=== PATIENT | male | born 1945 | race Caucasian/White ===

== ENCOUNTER 2025-01-29 08:38 | Observation (INO) ==
--- NOTE | 2025-01-29 09:08 | Emergency Department Note ---
Impression & Plan Stroke-like symptoms, Fall, Closed rib fracture ED Provider Note NAME: ASHLEIGH GARDNER AGE: 79 SEX: M : 1945 ARRIVES VIA: Walk-In INFORMANT: Patient, ED PROVIDER(S): Jose De Jesus Dong DO CHIEF COMPLAINT: Weakness HPI: The patient is a 79-year-old male who presented to the emergency department for an evaluation of weakness. The patient started noticing weakness on his right side yesterday. He states he is also having some trouble with walking. He feels off balance and knows he is falling to the right. He denies having any headache. He denies having any nausea or vomiting. The patient does not have a history of hypertension. He has no history of stroke. He has a history of diabetes. The patient fell last evening onto his right side injuring his right ribs. He called his family doctor this morning to be evaluated but was sent to the emergency department for further evaluation. ROS: See above HPI for pertinent positives & negatives. A total of 10 systems reviewed and were otherwise negative. PAST MEDICAL HISTORY: See Below PAST SURGICAL HISTORY: See Below FAMILY HISTORY: See Below SOCIAL HISTORY: See Below HOME MEDICATIONS: See Below ALLERGIES: See Below VITALS: See Below PHYSICAL EXAMINATION: GENERAL: Patient is awake alert in no acute distress patient is resting comfortably and showing no signs of anxiety EYES: The conjunctivae are clear. The pupils are round and reactive. EARS, NOSE, MOUTH AND THROAT: The nose is without any evidence of any deformity. Mucous membranes are moist. Tongue is midline. NECK: The neck is nontender and supple. RESPIRATORY: Normal respiratory effort is noted there is no evidence of wheezing rhonchi or rales CARDIOVASCULAR: Regular rate and rhythm noted there no murmurs rubs or gallops normal S1 normal S2. GASTROINTESTINAL: There is right upper quadrant tenderness over the lower rib cage. There is no specific guarding or rigidity noted. MUSCULOSKELETAL/EXTREMITIES: There is no evidence of gross deformity full range of motion is noted in the hips and shoulders. There is tenderness over the right anterior rib cage. There is no crepitus. SKIN: There is no obvious evidence of any rash. There are no petechiae, pallor or cyanosis noted. NEUROLOGIC: Patient is awake alert and oriented x3. Rapid alternating movements appear to be somewhat slower in the right hand compared to the left. The patient is able to hold each leg off the bed for greater than 5 seconds. [employer] strength was somewhat diminished in the right hand. There is no drift. There is no facial droop. Speech is clear. MEDICAL DECISION MAKING: The patient is a 79-year-old male who presented to the emergency department for an evaluation of strokelike symptoms. The patient had symptoms which began yesterday. He was having right-sided weakness. This led to him falling last evening. He presented to the emergency department today more for the fall and not so much of strokelike symptoms. He felt like this was improving. On physical exam the patient did have some dysmetria noted with his right upper extremity. Lower extremities appear to be symmetric. He had no severe headache. I discussed the patient's laboratory and radiographic studies with him. CT showed no acute process. 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 Given the patient's findings I do feel that he is likely consistent with an ischemic stroke. He may require further inpatient workup. For this reason I discussed his condition with the on-call [facility]. They have agreed to evaluate the patient in the emergency department for further management and disposition. The patient did have a unilateral rib fracture. Triage Nursing notes reviewed. Prior medical records reviewed Vital Signs: reviewed and remarkable for elevated blood pressure. Differential diagnosis: Infection, dehydration, metabolic abnormality, hypo/hyperglycemia, electrolyte disturbance, anemia, hypoxia, cardiac sources, intracerebral event, toxicologic, neurologic, as well as other pathologies. ER treatment provided: See below Diagnostics interpreted by me: ECG: EKG was obtained in the emergency department. My interpretation is sinus bradycardia 54 bpm. There is no ectopy. There is no acute ST segment abnormalities noted. QTc was 400 ms. Cardiac Monitoring: An order was placed for continuous cardiac monitoring. The monitor shows a rate of 55 bpm with sinus bradycardia. Laboratory studies: As stated above and show below. Imaging studies: See below. Radiographic imaging was reviewed by myself Consultation(s): I discussed this case with Maria Antonia who is on-call for the [facility] group. Past Med/Surg History Problem List (Updated 01/29/25 @ 10:37 by Jose De Jesus Dong DO) Closed rib fracture (Acute) Fall (Acute) Stroke-like symptoms (Acute) Medical History Diabetes Glaucoma Surgical History No pertinent past surgical history Social History Smoking Status: Former smoker Tobacco Type: Cigarettes Preferred Language: Ukrainian Feels Safe at Home: Yes Allergies Allergies Allergy/AdvReac Type Severity Reaction Status Date / Time No Known Allergies Allergy Unverified 06/03/11 12:58 Home Meds Home Medications Medication Instructions Recorded Confirmed glipizide 2.5 mg tablet, extended 2.5 mg PO DAILY 01/29/25 01/29/25 release 24 hr latanoprost 0.005 % eye drops 1 drp ophthalmic (eye) HS 01/29/25 01/29/25 metformin 1,000 mg tablet 1,000 mg PO BID 01/29/25 01/29/25 Results & Data (ED) Vital Signs Vital Signs - 24 hr 01/29/25 08:39 01/29/25 08:39 01/29/25 09:07 Temperature 36.6 C Temperature Source Temporal Artery Scan Pulse Rate 58 L 56 L Pulse Rate [Apical] Pulse Strength [Apical] Respiratory Rate 18 Respiratory Effort / Characteristics Respiratory Depth Respiratory Pattern Blood Pressure 184/88 H Blood Pressure [Right Arm] Blood Pressure Mean 120 Blood Pressure Mean [Right Arm] Pulse Oximetry 100 Oxygen Delivery Method Room Air Room Air Sepsis Recent Fever Within 48 Hours No Sepsis New/Unexplained Change in Mental Status N/A Sepsis Action Taken by Nursing No Action Required 01/29/25 09:13 01/29/25 09:21 01/29/25 10:48 Temperature Temperature Source Pulse Rate Pulse Rate [Apical] 55 L Pulse Strength [Apical] Respiratory Rate 18 18 Respiratory Effort / Characteristics Non-Labored Spontaneous Non-Labored Spontaneous Respiratory Depth Normal Normal Respiratory Pattern Regular Regular Blood Pressure Blood Pressure [Right Arm] 192/95 H 164/82 H 180/92 H Blood Pressure Mean Blood Pressure Mean [Right Arm] 127 109 121 Pulse Oximetry 99 99 Oxygen Delivery Method Room Air Room Air Sepsis Recent Fever Within 48 Hours Sepsis New/Unexplained Change in Mental Status Sepsis Action Taken by Nursing 01/29/25 12:14 Temperature Temperature Source Pulse Rate Pulse Rate [Apical] 55 L Pulse Strength [Apical] Normal Respiratory Rate 17 Respiratory Effort / Characteristics Non-Labored Spontaneous Respiratory Depth Normal Respiratory Pattern Regular Blood Pressure Blood Pressure [Right Arm] 189/95 H Blood Pressure Mean Blood Pressure Mean [Right Arm] 126 Pulse Oximetry 99 Oxygen Delivery Method Room Air Sepsis Recent Fever Within 48 Hours Sepsis New/Unexplained Change in Mental Status Sepsis Action Taken by Shelter Medications Current Medication List: was personally reviewed by me Laboratory Data Attestation: I reviewed the patient's lab results. 01/29/25 09:05 01/29/25 09:05 Lab Results 01/29/25 01/29/25 01/29/25 Range/Units 09:05 09:13 Unknown WBC 7.99 (4.8-10.8) K/ul RBC 4.47 L (4.70-6.10) M/uL Hgb 14.2 (14.0-18.0) g/dl POC Hgb 14.3 (14.0-18.0) g/dl Hct 40.6 L (42.0-52.0) % POC Hct 42 (42-52) % MCV 90.8 (80.0-100.0) fL MCH 31.8 (25.0-34.0) pg MCHC 35.0 (32.0-36.0) g/dL RDW Std Deviation 42.1 (36.4-46.3) fL RDW Coeff of Amelia 12.7 (11.5-14.5) % Plt Count 208 (130-400) K/uL MPV 9.4 (9.4-12.4) fL Immature Gran % (Auto) 0.4 % Neut % (Auto) 79.1 % Lymph % (Auto) 12.1 % [place]insett % (Auto) 6.0 % Eos % (Auto) 1.6 % Baso % (Auto) 0.8 % Neut # (Auto) 6.32 (1.40-6.50) K/uL Lymph # (Auto) 0.97 L (1.20-3.40) K/uL [place] # (Auto) 0.48 (0.11-0.59) K/uL Eos # (Auto) 0.13 (0.00-0.50) K/uL Baso # (Auto) 0.06 (0.00-0.20) K/uL Immature Gran # (Auto) 0.03 (0.01-0.20) K/uL PT 10.4 (9.0-12.0) Seconds INR 1.0 (0.9-1.1) APTT 25 (21-31) Seconds PTT Ratio 0.9 POC Sodium 140 (135-144) mmol/L Sodium 138 (136-145) mmol/L POC Potassium 3.8 (3.3-5.0) mmol/L Potassium 3.8 (3.5-5.1) mmol/L POC Chloride 103 (101-112) mmol/L Chloride 104 (98-107) mmol/L Carbon Dioxide 27 (21-32) mmol/L POC Total CO2 24 (24-31) mmol/L Anion Gap 7 (3-11) POC Anion Gap 17.0 (16-25) mmol/L POC BUN 25 H (7-18) mg/dl BUN 26 H (6-23) mg/dl Creatinine 1.22 (0.6-1.4) mg/dl POC Creatinine 1.2 (0.6-1.3) mg/dl Est Cr Clr Drug Dosing 53.8 ml/min eGFR 61.06 BUN/Creatinine Ratio 21.3 H (10-20) Glucose 128 H (70-99(Fasting)) mg/dl POC Glucose (other) 132 H (70-99) mg/dl Calcium 9.7 (8.6-10.3) mg/dl POC Ioniz Calcium Isabel 1.25 (1.12-1.32) mmol/l Magnesium 1.8 (1.7-2.4) mg/dl Total Bilirubin 0.7 (0.2-1.0) mg/dl AST 14 (13-39) U/L ALT 3 L (7-52) U/L Alkaline Phosphatase 61 (34-104) U/L Troponin I High Sens 7.1 (0-20) pg/ml Total Protein 8.0 (6.0-8.3) gm/dl Albumin 4.6 (3.4-5.0) gm/dl Globulin 3.4 (2.5-4.0) gm/dl Albumin/Globulin Ratio 1.4 (0.9-2) Urine Color Yellow Urine Appearance Clear (Clear) Urine pH 5.0 (4.5-7.5) Ur Specific [place] [employer] > 1.045 H (1.000-1.030) Urine Protein Negative (Negative) Urine Glucose (UA) Negative (Negative) Urine Ketones Trace H (Negative) Urine Blood Negative (Negative) Urine Nitrite Negative (Negative) Urine Bilirubin Negative (Negative) Urine Urobilinogen Negative (Negative) Ur Leukocyte Esterase 1+ H (Negative) Urine WBC (Auto) 11-20 H (0-5) /hpf Urine RBC (Auto) 0-2 (0-2) /hpf U Hyaline Cast (Auto) 0-2 (0-2) /lpf U Epithel Cells (Auto) 0-2 (0-2) /hpf Urine Bacteria (Auto) None Seen (None Seen) Urine Comment Administered Medications Discontinued Medications Aspirin (Aspirin 81 Mg Chew) 324 mg PO NOW STA Stop: 01/29/25 11:43 Last Admin: 01/29/25 11:56 Dose: 324 mg Documented By: MOISES Atorvastatin Calcium (Atorvastatin 40 Mg Tab) 40 mg PO ONE ONE Stop: 01/29/25 11:46 Last Admin: 01/29/25 12:11 Dose: 40 mg Documented By: MOISES Ioversol (Optiray 320 125ml) 120 ml IV ONCE ONE Stop: 01/29/25 09:54 Last Admin: 01/29/25 09:54 Dose: 120 ml Documented By: GERSON Lidocaine (Lidocaine 5% 1 Patch) 1 patch TD NOW STA Stop: 01/29/25 11:56 Last Admin: 01/29/25 12:12 Dose: 1 patch Documented By: MOISES Imaging Data Attestation: I personally reviewed and interpreted this imaging study as follows: My Impression: CT the brain was obtained in the emergency department. My interpretation is no intracranial hemorrhage or mass effect, final report below. Radiologist's Impression: Abdomen/Pelvis CT 01/29/25 08:[address] WITH IV CONTRAST CT DOSE: 1957 HISTORY: right sided pain TECHNIQUE: Multiaxial CT images of the abdomen and pelvis were performed following the IV administration of 120 cc of Optiray, A dose lowering technique was utilized adhering to the principles of ALARA. COMPARISON STUDY: None FINDINGS: ABDOMEN: Liver, gallbladder, spleen, pancreas, adrenal glands, kidneys, and abdominal aorta show no evidence of acute injury. There are scattered atherosclerotic calcifications. No abdominal aortic aneurysm. No hydronephrosis. Pelvis: Prostate is enlarged. Urinary bladder is nondistended. There is extensive sigmoid diverticulosis. No acute diverticulitis. There is a small right inguinal hernia containing a few nonobstructed small bowel loops. The hernia measures 4 cm axially. There is a small left inguinal hernia containing a nonobstructed small bowel loop. The hernia measures 3 cm diameter. There is moderate retained stool. No bowel inflammation or obstruction seen. No free fluid or free air. No enlarged adenopathy. Osseous structures: There is a nondisplaced fracture at the right seventh rib. No other acute fracture seen at the visualized osseous structures. IMPRESSION: 1. Fracture right seventh rib. 2. No acute injury seen at the abdomen or pelvis. Otherwise as described. ACT 112: Negative or not required by law. The above report was generated using voice recognition software. It may contain grammatical, syntax or spelling errors. Electronically signed by: Angelo Casillas M.D. 01/29/2025 10:[address] 01/29/25 08:[address] WITH CONTRAST HISTORY: fall, right rib pain TECHNIQUE: Multiaxial CT images of the chest were performed following the IV administration of 120 cc of Optiray. A dose lowering technique was utilized adhering to the principles of ALARA. COMPARISON STUDY: None FINDINGS: There is moderate scarring in the lung apices. There is no pulmonary contusion, pleural effusion, or pneumothorax. There is minimal dependent atelectasis at the left base. No mediastinal hematoma or thoracic aortic injury. No pericardial effusion. There are severe diffuse coronary artery calcifications. No enlarged adenopathy. There is an acute nondisplaced fracture anteriorly and laterally at the right seventh rib. No other acute fracture seen at the visualized osseous structures. IMPRESSION: Acute nondisplaced fracture at the right seventh rib with no pneumothorax. No other acute findings seen. ACT 112: Negative or not required by law. Electronically signed by: Angelo Casillas M.D. 01/29/2025 10:[address] 01/29/25 08:57 CT head/brain wo con CLINICAL HISTORY: 79 years-old Male with neuro deficit, acute stroke suspected. Acute stroke like symptoms TECHNIQUE: Multiple axial CT images of the head were obtained without contrast. A dose lowering technique was utilized adhering to the principles of ALARA. COMPARISON: CTA head of same day FINDINGS: No acute intracranial hemorrhage, midline shift, intracranial mass, hydrocephalus, territorial ischemia or abnormal extra-axial collection. Mild involutional changes. The calvarium is intact. Prior bilateral lens repair. The paranasal sinuses, mastoid air cells, and middle ear cavities are clear. IMPRESSION: No acute intracranial abnormality. ACT 112: Negative or not required by law. The above report was generated using voice recognition software. It may contain grammatical, syntax or spelling errors. Electronically signed by: Bala Ennis M.D. 01/29/2025 10:17 AM Head CTA 01/29/25 08:57 CTA ANGIOGRAPHY OF THE HEAD CLINICAL HISTORY: neuro deficit, acute stroke suspected. Right-sided weakness. COMPARISON STUDY: No previous studies for comparison. TECHNIQUE: Helical axial images of the head were obtained following uneventful intravenous administration of 120 cc of Optiray. Sagittal and coronal reconstructions were viewed as well as maximal intensity projections on an independent 3-D workstation. Automated exposure control was utilized for the study. A dose lowering technique was utilized adhering to the principles of ALARA. FINDINGS: Please note that the head CT will be reported separately. No acute intracranial hemorrhage, midline shift or mass effect is present. Ventricular system is normal. Basal cisterns are patent. There are no extra-axial collections. The bilateral M1, M2, A1 and A2 segments are patent. No vessel occlusion is identified. There is no intracranial aneurysm. There is mild atherosclerotic plaque within the cavernous carotids without stenosis. There are bilateral posterior communicating arteries and an anterior communicating artery. Posterior circulation is intact. Left vertebral artery is dominant. IMPRESSION: No large vessel occlusion. No intracranial aneurysm. ACT 112: Negative or not required by law. Electronically signed by: Gallo Prado M.D. 01/29/2025 10:19 AM Neck CTA 01/29/25 08:57 CT angio neck with con CLINICAL HISTORY: 79 years-old Male with neuro deficit, acute stroke suspected. Acute stroke like symptoms COMPARISON STUDY: CTA head of same day TECHNIQUE: Following the IV administration of 120 mL of Optiray, CT angiogram of the neck was performed from the aortic arch to the skull base. Images are reviewed in the axial, sagittal, and coronal planes. 3-D MIPS images are created and assessed. IV contrast was administered without complication. All measurements were calculated based on NASCET criteria. A dose lowering technique was utilized adhering to the principles of ALARA. CT DOSE: 1958.49 mGy.cm FINDINGS: Atherosclerosis of the thoracic aortic arch and proximal great vessels. There is mild stenosis of the bilateral subclavian arteries. The common carotid arteries are patent. Atherosclerosis of the carotid bulbs causing less than 50% stenosis bilaterally. Dominant left vertebral artery with mild stenosis at its origin. The left vertebral artery is widely patent. Developmentally diminutive right vertebral artery demonstrates moderate stenosis at the junction of the V3 and V4 segments, image 328 series 7. Additional moderate stenosis of the V4 segment secondary to atherosclerosis on image 341. CTA head dictated separately. Mild biapical pleural-parenchymal scarring. Unremarkable soft tissues with partially imaged subcutaneous lipoma superficial to the left trapezius musculature which measures over 5 cm in length. Multilevel degenerative changes of the cervical spine. IMPRESSION: 1. Atherosclerosis of the carotid bulbs causing less than 50% stenosis bilaterally. 2. There is moderate stenosis involving the right vertebral artery. 3. No aneurysm, dissection, high-grade stenosis or arterial occlusion. ACT 112: Negative or not required by law. The above report was generated using voice recognition software. It may contain grammatical, syntax or spelling errors. Electronically signed by: Bala Ennis M.D. 01/29/2025 10:23 AM Brain MRI 01/29/25 11:45 MR brain wo con HISTORY: 79 years-old Male stroke eval acute stroke like symptoms COMPARISON: Head CT of same day TECHNIQUE: Multiplanar multisequence MRI of the brain was obtained without IV contrast. FINDINGS: 1.3 x 0.8 x 2.0 cm linear focus of restricted diffusion is noted involving the left frontal lobe silva radiata/posterior limb internal capsule/lentiform nuclear distribution on image 14 series 3 with mild associated edema. No acute or subacute territorial infarct. The midline structures appear unremarkable. Degenerative changes of the imaged cervical spine. There is no acute intracranial hemorrhage, midline shift, abnormal extra-axial collection, hydrocephalus or intra-axial mass. No pathologic blooming artifact. Mild involutional changes. Minimal scattered T2/FLAIR hyperintense foci throughout the white matter are likely of no clinical significance suggestive of early chronic microvascular ischemic disease. Cerebral venous sinuses and major arterial flow voids appear patent. Skull, orbits and soft tissues are unremarkable. Prior bilateral lens repair. IMPRESSION: 1. 2 cm acute infarct is noted within the left frontal lobe silva radiata/basal ganglia. 2. No acute territorial infarct, midline shift or acute intracranial hemorrhage. ACT 112: Negative or not required by law. The above report was generated using voice recognition software. It may contain grammatical, syntax or spelling errors. Electronically signed by: Bala Ennis M.D. 01/29/2025 1:26 PM Discharge Plan Visit Data Chief Complaint: Weakness Stated Complaint: WEAKNESS R SIDE OF BODY, FALL ED Provider: Jose De Jesus Dong Discharge Problem: Stroke-like symptoms, Fall, Closed rib fracture Patient Disposition: Being Evaluated by Hospitalist Condition: Fair Forms Stand Alone Forms: [facility] Prescriptions Prescriptions: No Action latanoprost 0.005 % drops 1 drp ophthalmic (eye) HS glipizide 2.5 mg tablet extended release 24hr 2.5 mg PO DAILY metformin 1,000 mg tablet 1,000 mg PO BID Referrals Referrals: Mingo Damon DO [Primary Care Provider] -
[2025-01-29 09:33] LABS: Hematocrit (blood only) 40.6 % (42.0-52.0); Hemoglobin 14.2 g/dl (14.0-18.0); Immature Granulocytes # (auto) 0.03 K/uL (0.01-0.20); Immature Granulocytes % (auto) 0.4 %; Mean Corpuscular Hemoglobin 31.8 pg (25.0-34.0); Mean Corpuscular Volume 90.8 fL (80.0-100.0); Platelet Count 208 K/uL (130-400); RDW Standard Deviation 42.1 fL (36.4-46.3); Red Blood Count 4.47 M/uL (4.70-6.10); White Blood Count 7.99 K/ul (4.8-10.8)
[2025-01-29] MEDS: OPTIRAY 320 125ml IV ONE (09:54)
[2025-01-29 10:00] LABS: Alanine Aminotransferase 3.0 U/L (7-52); Albumin Globulin Ratio 1.4 (0.9-2); Albumin Level 4.6 gm/dl (3.4-5.0); Alkaline Phosphatase 61.0 U/L (34-104); Anion Gap 7.0 (3-11); Bilirubin,Total 0.7 mg/dl (0.2-1.0); Blood Urea Nitrogen 26.0 mg/dl (6-23); Calcium 9.7 mg/dl (8.6-10.3); Carbon Dioxide 27.0 mmol/L (21-32); Chloride 104.0 mmol/L (98-107); Creatinine Clr Calc Pharmacy 53.8 ml/min; Globulin 3.4 gm/dl (2.5-4.0); Glucose 128.0 mg/dl (70-99(Fasting)); Magnesium 1.8 mg/dl (1.7-2.4); Potassium 3.8 mmol/L (3.5-5.1); Sodium 138.0 mmol/L (136-145); Total Protein 8.0 gm/dl (6.0-8.3)
[2025-01-29 10:01] LABS: INR 1.0 (0.9-1.1); Partial Thromboplastin Time 25 Seconds (21-31); Prothrombin Time 10.4 Seconds (9.0-12.0)
--- NOTE | 2025-01-29 10:16 | CT Scan Report ---
CHEST CT WITH CONTRAST HISTORY: fall, right rib pain TECHNIQUE: Multiaxial CT images of the chest were performed following the IV administration of 120 cc of Optiray. A dose lowering technique was utilized adhering to the principles of ALARA. COMPARISON STUDY: None FINDINGS: There is moderate scarring in the lung apices. There is no pulmonary contusion, pleural eff usion, or pneumothorax. There is minimal dependent atelectasis at the left base. No mediastinal hemat soraya or thoracic aortic injury. No pericardial effusion. There are severe diffuse coronary artery calc ifications. No enlarged adenopathy. There is an acute nondisplaced fracture anteriorly and laterally at the right seventh rib. No other acute fracture seen at the visualized osseous structures. IMPRESSION: Acute nondisplaced fracture at the right seventh rib with no pneumothorax. No other acute findings seen. ACT 112: Negative or not required by law. Electronically signed by: Angelo Casillas M.D. 01/29/2025 10:15 AM
--- NOTE | 2025-01-29 10:18 | CT Scan Report ---
CT head/brain wo con CLINICAL HISTORY: 79 years-old Male with neuro deficit, acute stroke suspected. Acute stroke like sy mptoms TECHNIQUE: Multiple axial CT images of the head were obtained without contrast. A dose lowering tech nique was utilized adhering to the principles of ALARA. COMPARISON: CTA head of same day FINDINGS: No acute intracranial hemorrhage, midline shift, intracranial mass, hydrocephalus, territorial ischem ia or abnormal extra-axial collection. Mild involutional changes. The calvarium is intact. Prior bilateral lens repair. The paranasal sinuses, mastoid air cells, and middle ear cavities are clear. IMPRESSION: No acute intracranial abnormality. ACT 112: Negative or not required by law. The above report was generated using voice recognition software. It may contain grammatical, syntax o r spelling errors. Electronically signed by: Bala Ennis M.D. 01/29/2025 10:17 AM
--- NOTE | 2025-01-29 10:21 | CT Scan Report ---
CTA ANGIOGRAPHY OF THE HEAD CLINICAL HISTORY: neuro deficit, acute stroke suspected. Right-sided weakness. COMPARISON STUDY: No previous studies for comparison. TECHNIQUE: Helical axial images of the head were obtained following uneventful intravenous administr ation of 120 cc of Optiray. Sagittal and coronal reconstructions were viewed as well as maximal inten sity projections on an independent 3-D workstation. Automated exposure control was utilized for the study. A dose lowering technique was utilized adhering to the principles of ALARA. FINDINGS: Please note that the head CT will be reported separately. No acute intracranial hemorrhage, midline shift or mass effect is present. Ventricular system is normal. Basal cisterns are patent. Th ere are no extra-axial collections. The bilateral M1, M2, A1 and A2 segments are patent. No vessel oc clusion is identified. There is no intracranial aneurysm. There is mild atherosclerotic plaque within the cavernous carotids without stenosis. There are bilateral posterior communicating arteries and an anterior communicating artery. Posterior circulation is intact. Left vertebral artery is dominant. IMPRESSION: No large vessel occlusion. No intracranial aneurysm. ACT 112: Negative or not required by law. Electronically signed by: Gallo Prado M.D. 01/29/2025 10:19 AM
--- NOTE | 2025-01-29 10:24 | CT Scan Report ---
CT angio neck with con CLINICAL HISTORY: 79 years-old Male with neuro deficit, acute stroke suspected. Acute stroke like symptoms COMPARISON STUDY: CTA head of same day TECHNIQUE: Following the IV administration of 120 mL of Optiray, CT angiogram of the neck was perform ed from the aortic arch to the skull base. Images are reviewed in the axial, sagittal, and coronal pl anes. 3-D MIPS images are created and assessed. IV contrast was administered without complication. Al l measurements were calculated based on NASCET criteria. A dose lowering technique was utilized adhe ring to the principles of ALARA. CT DOSE: 1958.49 mGy.cm FINDINGS: Atherosclerosis of the thoracic aortic arch and proximal great vessels. There is mild stenosis of the bilateral subclavian arteries. The common carotid arteries are patent. Atherosclerosis of the caroti d bulbs causing less than 50% stenosis bilaterally. Dominant left vertebral artery with mild stenosis at its origin. The left vertebral artery is widely patent. Developmentally diminutive right vertebra l artery demonstrates moderate stenosis at the junction of the V3 and V4 segments, image 328 series 7 . Additional moderate stenosis of the V4 segment secondary to atherosclerosis on image 341. CTA head dictated separately. Mild biapical pleural-parenchymal scarring. Unremarkable soft tissues with partially imaged subcutane ous lipoma superficial to the left trapezius musculature which measures over 5 cm in length. Multilev el degenerative changes of the cervical spine. IMPRESSION: 1. Atherosclerosis of the carotid bulbs causing less than 50% stenosis bilaterally. 2. There is moderate stenosis involving the right vertebral artery. 3. No aneurysm, dissection, high-grade stenosis or arterial occlusion. ACT 112: Negative or not required by law. The above report was generated using voice recognition software. It may contain grammatical, syntax o r spelling errors. Electronically signed by: Bala Ennis M.D. 01/29/2025 10:23 AM
--- NOTE | 2025-01-29 10:24 | CT Scan Report ---
ABDOMEN AND PELVIS CT WITH IV CONTRAST CT DOSE: 1956 HISTORY: right sided pain TECHNIQUE: Multiaxial CT images of the abdomen and pelvis were performed following the IV administrat ion of 120 cc of Optiray, A dose lowering technique was utilized adhering to the principles of ALARA . COMPARISON STUDY: None FINDINGS: ABDOMEN: Liver, gallbladder, spleen, pancreas, adrenal glands, kidneys, and abdominal aorta show no e vidence of acute injury. There are scattered atherosclerotic calcifications. No abdominal aortic aneu rysm. No hydronephrosis. Pelvis: Prostate is enlarged. Urinary bladder is nondistended. There is extensive sigmoid diverticulo sis. No acute diverticulitis. There is a small right inguinal hernia containing a few nonobstructed s mall bowel loops. The hernia measures 4 cm axially. There is a small left inguinal hernia containing a nonobstructed small bowel loop. The hernia measures 3 cm diameter. There is moderate retained stool . No bowel inflammation or obstruction seen. No free fluid or free air. No enlarged adenopathy. Osseous structures: There is a nondisplaced fracture at the right seventh rib. No other acute fractur e seen at the visualized osseous structures. IMPRESSION: 1. Fracture right seventh rib. 2. No acute injury seen at the abdomen or pelvis. Otherwise as described. ACT 112: Negative or not required by law. The above report was generated using voice recognition software. It may contain grammatical, syntax o r spelling errors. Electronically signed by: Angelo Casillas M.D. 01/29/2025 10:23 AM
[2025-01-29] MEDS ORDERED: GLUCAGON FOR INJ 1 MG VIAL SQ PRN (11:50)
[2025-01-29] MEDS ORDERED: CARBOHYDRATES FOR HYPOGLYCEMIA PO PRN (11:50)
[2025-01-29] MEDS ORDERED: GLUCOSE 10 TAB/TUBE PO PRN (11:50)
[2025-01-29] MEDS ORDERED: DEXTROSE 50% 50 ML SYRINGE IV PRN (11:50)
[2025-01-29] MEDS ORDERED: GLUCOSE 40% GEL 15 GM TUBE PO PRN (11:50)
[2025-01-29] MEDS ORDERED: ACETAMINOPHEN 500 MG TAB PO PRN (11:53)
--- NOTE | 2025-01-29 11:53 | History & Physical Report ---
Date of Service January 29, 2025 Assessment & Plan (1) Stroke-like symptoms: Plan: This is a 79-year-old male with PMH of type 2 diabetes who presents with right sided weakness and unsteady gait since yesterday and is being admitted for stroke work up. Ddx TIA vs acute stroke CT head- no acute process CTA head- no large vessel occlusion. No intracranial aneurysm CTA neck- * 1. Atherosclerosis of the carotid bulbs causing less than 50% stenosis bilaterally. * 2. There is moderate stenosis involving the right vertebral artery. * 3. No aneurysm, dissection, high-grade stenosis or arterial occlusion. Started aspirin, atorvastatin BP elevated 189/95 - asymptomatic. Allow for permissive HTN for next 24 hours, goal systolic BP <220 MRI brain wo contrast, echo with bubble study ordered Routine neuro consult, PT/OT/speech consults A1c, lipid panel in AM Outpatient follow up with Vascular surgery for carotid atherosclerosis (2) Fall: (3) Closed rib fracture: Plan: No head trauma Scheduled Tylenol, lidocaine, ice for non-displaced R 7th rib fracture (4) Diabetes mellitus, type II: Plan: A1c ordered for AM Hold home agents SSI while in-patient BSG AC HS DVT Ppx: SQ heparin Code status: FULL PCP: Nelson Dispo: Obs PCU Patient seen in collaboration with Dr. Moore. Please see addendum. I spent a total of 75 minutes coordinating, documenting, and providing care for this patient excluding time spent in the performance of separately billed services or time spent by another provider/QHP. History of Present Illness Chief Complaint: Weakness, fall Primary Care Provider: Mingo Damon, DO This is a 79-year-old male with PMH of type 2 diabetes who presents with generalized weakness and unsteady gait since yesterday. Worked out at [employer] in the afternoon and then felt like he had to focus carefully on walking to his car to avoid falling, as if his feet were heavy. Drove home and rested the remainder of the evening without issue. When eating dinner around 9 PM, had difficulty grasping his silverware in his right dominant hand and was dropping things, per at bedside. During the night, got up multiple times to use the bathroom and during one of his returns to his bed, felt weakness and fell forward, hitting his ribs on his bedside table. Denies any head trauma or loss of consciousness. Got back in bed and slept the rest the night. Around 7 this morning, he and decided he should present to ED for further evaluation. Denies any history of stroke. No facial droop or difficulty speaking or swall owing. 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 Denies any tobacco use over the past 10 years. Drinks alcohol 5 nights a week, medical marijuana use. No fever, chills, lightheadedness, chest pain, shortness of breath, nausea, vomiting, abdominal pain, dysuria, diarrhea constipation. Allergies Allergy/AdvReac Type Severity Reaction Status Date / Time No Known Allergies Allergy Unverified 06/03/11 12:58 Home Medications Medication Instructions Recorded Confirmed Type glipizide 2.5 mg tablet, extended 2.5 mg PO DAILY 01/29/25 01/29/25 History release 24 hr latanoprost 0.005 % eye drops 1 drp ophthalmic (eye) HS 01/29/25 01/29/25 History metformin 1,000 mg tablet 1,000 mg PO BID 01/29/25 01/29/25 History Past Med/Surg History Problem List (Updated 01/29/25 @ 13:52 by Maria Antonia Peralta PA-C) Closed rib fracture (Acute) Fall (Acute) Stroke-like symptoms (Acute) Medical History (Updated 01/29/25 @ 13:52 by Maria Antonia Peralta PA-C) Diabetes mellitus, type II Glaucoma Surgical History No pertinent past surgical history Family History (Updated 01/29/25 @ 13:51 by Maria Antonia Peralta PA-C) Other Heart disease Denies family history of Stroke Social History Smoking Status: Former smoker Tobacco Type: Cigarettes Preferred Language: Citizen Of [place] Feels Safe at Home: Yes Review of Systems Review of Systems: At least ten systems reviewed and negative except as noted in the HPI. Physical Exam Physical Exam: General Appearance: WD/WN, vitals as above, NAD, sitting up in bed, pleasant, conversing easily Head: normocephalic, atraumatic Eyes: normal inspection, PERRL, conjunctivae normal, anicteric sclerae ENT: external ear and nose normal, oropharynx normal Neck: normal visual inspection Respiratory: normal respiratory effort, lungs clear to auscultation, no wheeze, rales, rhonchi. No accessory muscle use Cardiovascular: regular rate, rhythm, normal peripheral pulses, no BLE edema Abdomen/GI: normal bowel sounds, soft, nontender, no hepatosplenomegaly Extremities/Musculoskeletal: no cyanosis or clubbing, extremities motor strength R station inspector strength 4/5, L station inspector strength 5/5, RLE 4/5, LLE 5/5 Neurologic: PERRL, EOMI, accommodation nl, no face palsy, no dysarthria, CN's II-XI intact bilaterally and moves all extremities Psychiatric: A+Ox3, euthymic affect Skin: no rashes, normal color, warm/dry Results & Data Results & Data Vital Signs (Past 12 Hours) Vital Signs Temp Pulse Pulse Resp BP BP Pulse Ox 01/29/25 10:48 18 180/92 H 99 01/29/25 09:21 164/82 H 01/29/25 09:13 55 L 18 192/95 H 99 01/29/25 09:07 56 L 01/29/25 08:39 01/29/25 08:39 36.6 C 58 L 18 184/88 H 100 O2 Del Method 01/29/25 10:48 Room Air 01/29/25 09:21 01/29/25 09:13 Room Air 01/29/25 09:07 01/29/25 08:39 Room Air 01/29/25 08:39 Room Air Laboratory Results Short CBC 01/29/25 Range/Units 09:05 WBC 7.99 (4.8-10.8) K/ul Hgb 14.2 (14.0-18.0) g/dl Hct 40.6 L (42.0-52.0) % Plt Count 208 (130-400) K/uL BMP 01/29/25 09:05 Sodium 138 Potassium 3.8 Chloride 104 Carbon Dioxide 27 BUN 26 H Creatinine 1.22 Glucose 128 H Calcium 9.7 Liver Function 01/29/25 Range/Units 09:05 Total Bilirubin 0.7 (0.2-1.0) mg/dl AST 14 (13-39) U/L ALT 3 L (7-52) U/L Alkaline Phosphatase 61 (34-104) U/L Albumin 4.6 (3.4-5.0) gm/dl Urine 01/29/25 Range/Units Unknown Urine Color Yellow Urine Appearance Clear (Clear) Urine pH 5.0 (4.5-7.5) Ur Specific Diggs > 1.045 H (1.000-1.030) Urine Protein Negative (Negative) Urine Glucose (UA) Negative (Negative) Diagnostic Findings Abdomen/Pelvis CT 01/29/25 08:[address] WITH IV CONTRAST CT DOSE: 1957 HISTORY: right sided pain TECHNIQUE: Multiaxial CT images of the abdomen and pelvis were performed following the IV administration of 120 cc of Optiray, A dose lowering technique was utilized adhering to the principles of ALARA. COMPARISON STUDY: None FINDINGS: ABDOMEN: Liver, gallbladder, spleen, pancreas, adrenal glands, kidneys, and abdominal aorta show no evidence of acute injury. There are scattered atherosclerotic calcifications. No abdominal aortic aneurysm. No hydronephrosis. Pelvis: Prostate is enlarged. Urinary bladder is nondistended. There is extensive sigmoid diverticulosis. No acute diverticulitis. There is a small right inguinal hernia containing a few nonobstructed small bowel loops. The hernia measures 4 cm axially. There is a small left inguinal hernia containing a nonobstructed small bowel loop. The hernia measures 3 cm diameter. There is moderate retained stool. No bowel inflammation or obstruction seen. No free fluid or free air. No enlarged adenopathy. Osseous structures: There is a nondisplaced fracture at the right seventh rib. No other acute fracture seen at the visualized osseous structures. IMPRESSION: 1. Fracture right seventh rib. 2. No acute injury seen at the abdomen or pelvis. Otherwise as described. ACT 112: Negative or not required by law. The above report was generated using voice recognition software. It may contain grammatical, syntax or spelling errors. Electronically signed by: Angelo Casillas M.D. 01/29/2025 10:[address] 01/29/25 08:[address] WITH CONTRAST HISTORY: fall, right rib pain TECHNIQUE: Multiaxial CT images of the chest were performed following the IV administration of 120 cc of Optiray. A dose lowering technique was utilized adhering to the principles of ALARA. COMPARISON STUDY: None FINDINGS: There is moderate scarring in the lung apices. There is no pulmonary contusion, pleural effusion, or pneumothorax. There is minimal dependent atelectasis at the left base. No mediastinal hematoma or thoracic aortic injury. No pericardial effusion. There are severe diffuse coronary artery calcifications. No enlarged adenopathy. There is an acute nondisplaced fracture anteriorly and laterally at the right seventh rib. No other acute fracture seen at the visualized osseous structures. IMPRESSION: Acute nondisplaced fracture at the right seventh rib with no pneumothorax. No other acute findings seen. ACT 112: Negative or not required by law. Electronically signed by: Angelo Casillas M.D. 01/29/2025 10:[address] 01/29/25 08:57 CT head/brain wo con CLINICAL HISTORY: 79 years-old Male with neuro deficit, acute stroke suspected. Acute stroke like symptoms TECHNIQUE: Multiple axial CT images of the head were obtained without contrast. A dose lowering technique was utilized adhering to the principles of ALARA. COMPARISON: CTA head of same day FINDINGS: No acute intracranial hemorrhage, midline shift, intracranial mass, hydrocephalus, territorial ischemia or abnormal extra-axial collection. Mild involutional changes. The calvarium is intact. Prior bilateral lens repair. The paranasal sinuses, mastoid air cells, and middle ear cavities are clear. IMPRESSION: No acute intracranial abnormality. ACT 112: Negative or not required by law. The above report was generated using voice recognition software. It may contain grammatical, syntax or spelling errors. Electronically signed by: Blaa Ennis M.D. 01/29/2025 10:17 AM Head CTA 01/29/25 08:57 CTA ANGIOGRAPHY OF THE HEAD CLINICAL HISTORY: neuro deficit, acute stroke suspected. Right-sided weakness. COMPARISON STUDY: No previous studies for comparison. TECHNIQUE: Helical axial images of the head were obtained following uneventful intravenous administration of 120 cc of Optiray. Sagittal and coronal reconstructions were viewed as well as maximal intensity projections on an independent 3-D workstation. Automated exposure control was utilized for the s matady. A dose lowering technique was utilized adhering to the principles of ALARA. FINDINGS: Please note that the head CT will be reported separately. No acute intracranial hemorrhage, midline shift or mass effect is present. Ventricular system is normal. Basal cisterns are patent. There are no extra-axial collections. The bilateral M1, M2, A1 and A2 segments are patent. No vessel occlusion is identified. There is no intracranial aneurysm. There is mild atherosclerotic plaque within the cavernous carotids without stenosis. There are bilateral posterior communicating arteries and an anterior communicating artery. Posterior circulation is intact. Left vertebral artery is dominant. IMPRESSION: No large vessel occlusion. No intracranial aneurysm. ACT 112: Negative or not required by law. Electronically signed by: Gallo Prado M.D. 01/29/2025 10:19 AM Neck CTA 01/29/25 08:57 CT angio neck with con CLINICAL HISTORY: 79 years-old Male with neuro deficit, acute stroke suspected. Acute stroke like symptoms COMPARISON STUDY: CTA head of same day TECHNIQUE: Following the IV administration of 120 mL of Optiray, CT angiogram of the neck was performed from the aortic arch to the skull base. Images are reviewed in the axial, sagittal, and coronal planes. 3-D MIPS images are created and assessed. IV contrast was administered without complication. All measurements were calculated based on NASCET criteria. A dose lowering technique was utilized adhering to the principles of ALARA. CT DOSE: 1958.49 mGy.cm FINDINGS: Atherosclerosis of the thoracic aortic arch and proximal great vessels. There is mild stenosis of the bilateral subclavian arteries. The common carotid arteries are patent. Atherosclerosis of the carotid bulbs causing less than 50% stenosis bilaterally. Dominant left vertebral artery with mild stenosis at its origin. The left vertebral artery is widely patent. Developmentally diminutive right vertebral artery demonstrates moderate stenosis at the junction of the V3 and V4 segments, image 328 series 7. Additional moderate stenosis of the V4 segment secondary to atherosclerosis on image 341. CTA head dictated separately. Mild biapical pleural-parenchymal scarring. Unremarkable soft tissues with partially imaged subcutaneous lipoma superficial to the left trapezius musculature which measures over 5 cm in length. Multilevel degenerative changes of the cervical spine. IMPRESSION: 1. Atherosclerosis of the carotid bulbs causing less than 50% stenosis bilaterally. 2. There is moderate stenosis involving the right vertebral artery. 3. No aneurysm, dissection, high-grade stenosis or arterial occlusion. ACT 112: Negative or not required by law. The above report was generated using voice recognition software. It may contain grammatical, syntax or spelling errors. Electronically signed by: Bala Ennis M.D. 01/29/2025 10:23 AM Brain MRI 01/29/25 11:45 MR brain wo con HISTORY: 79 years-old Male stroke eval acute stroke like symptoms COMPARISON: Head CT of same day TECHNIQUE: Multiplanar multisequence MRI of the brain was obtained without IV contrast. FINDINGS: 1.3 x 0.8 x 2.0 cm linear focus of restricted diffusion is noted involving the left frontal lobe silva radiata/posterior limb internal capsule/lentiform nuclear distribution on image 14 series 3 with mild associated edema. No acute or subacute territorial infarct. The midline structures appear unremarkable. Degenerative changes of the imaged cervical spine. There is no acute intracranial hemorrhage, midline shift, abnormal extra-axial collection, hydrocephalus or intra-axial mass. No pathologic blooming artifact. Mild involutional changes. Minimal scattered T2/FLAIR hyperintense foci throughout the white matter are likely of no clinical significance suggestive of early chronic microvascular ischemic disease. Cerebral venous sinuses and major arterial flow voids appear patent. Skull, orbits and soft tissues are unremarkable. Prior bilateral lens repair. IMPRESSION: 1. 2 cm acute infarct is noted within the left frontal lobe silva radiata/basal ganglia. 2. No acute territorial infarct, midline shift or acute intracranial hemorrhage. ACT 112: Negative or not required by law. The above report was generated using voice recognition software. It may contain grammatical, syntax or spelling errors. Electronically signed by: Bala Ennis M.D. 01/29/2025 1:26 PM Code Status & VTE Plan VTE Prophylaxis Plan VTE Prophylaxis will be ordered: Yes
[2025-01-29] MEDS: ASPIRIN 81 MG CHEW PO STA (11:56)
[2025-01-29] MEDS: ATORVASTATIN 40 MG TAB PO ONE (12:11)
[2025-01-29] MEDS: LIDOCAINE 5% 1 PATCH TD STA (12:12)
[2025-01-29 12:39] LABS: Appearance Urine Clear (Clear); Bacteria Urine Automated None Seen (None Seen); Cast Urine Automated 0-2 /lpf (0-2); Epithelial Cell Urine Auto 0-2 /hpf (0-2); Glucose Urine UA Negative (Negative); RBC Urine Automated 0-2 /hpf (0-2)
--- NOTE | 2025-01-29 12:44 | Communication Note ---
Date of Service: January 29, 2025 Attending Addendum: Case reviewed with the advanced practitioner. I have personally performed a history and physical examination on the patient. I have reviewed the advanced practitioner's documentation on the date of service referenced in note, and I agree with, and take responsibility for the plan of care. please refer to her notes for full details patient seen and examined, records reviewed by myself as well on exam, patient seen resting in bed, sitting up comfortable states he feels ok overall feels his balance is better this morning still having some mild R upper and lower extremity weakness coordination is still somewhat off as per patient no numbness no chest pain, dyspnea, palpitations, dizziness no headache, nausea/vomiting no other symptoms VS noted and reviewed oriented x3 , not in distress, speaks in sentences with no effort nor accessory muscle use normal rate, regular rhythm, no murmurs clear breath sounds bilaterally non distended, soft, nontender no bipedal edema, erythema, warmth Neuro- alert, oriented x 3; CN 2-12 grossly intact; motor RUE and RLE 4/5, LUE and LLE 5/5 y;sensation 100% on all extremities; no other gross focal neurologic deficits Skin- warm & dry all labs, imaging noted and reviewed ASSESSMENT AND PLAN> RIGHT SIDED WEAKNESS, POSSIBLE TIA VS. ACUTE CVA symptoms started yesterday afternoon persisting through today CT head: no acute process CT angio head and neck: No large vessel occlusion. No intracranial aneurysm. 1. Atherosclerosis of the carotid bulbs causing less than 50% stenosis bilaterally. 2. There is moderate stenosis involving the right vertebral artery. 3. No aneurysm, dissection, high-grade stenosis or arterial occlusion. start Aspirin, Atorvastatin BP elevated- asymptomatic, no history of HTN, permissive hypertension until tomorrow, goal systolic bp < 220 check A1c, Lipid panel, echo Neurology consulted outpatient follow up with Vascular surgery DM 2 hold oral meds check A1c other diagnoses and plan of care as per advanced practitioner's notes I spent a total of 45 minutes coordinating, documenting, and providing care for this patient, excluding time spent in the performance of separately billed services or time spent by another provider/QHP. Saeid Moore MD
--- NOTE | 2025-01-29 13:28 | Magnetic Resonance Report ---
MR brain wo con HISTORY: 79 years-old Male stroke eval acute stroke like symptoms COMPARISON: Head CT of same day TECHNIQUE: Multiplanar multisequence MRI of the brain was obtained without IV contrast. FINDINGS: 1.3 x 0.8 x 2.0 cm linear focus of restricted diffusion is noted involving the left frontal lobe jade na radiata/posterior limb internal capsule/lentiform nuclear distribution on image 14 series 3 with m ild associated edema. No acute or subacute territorial infarct. The midline structures appear unremar kable. Degenerative changes of the imaged cervical spine. There is no acute intracranial hemorrhage, midline shift, abnormal extra-axial collection, hydrocepha nazia or intra-axial mass. No pathologic blooming artifact. Mild involutional changes. Minimal scattere d T2/FLAIR hyperintense foci throughout the white matter are likely of no clinical significance sugge stive of early chronic microvascular ischemic disease. Cerebral venous sinuses and major arterial flow voids appear patent. Skull, orbits and soft tissues a re unremarkable. Prior bilateral lens repair. IMPRESSION: 1. 2 cm acute infarct is noted within the left frontal lobe silva radiata/basal ganglia. 2. No acute territorial infarct, midline shift or acute intracranial hemorrhage. ACT 112: Negative or not required by law. The above report was generated using voice recognition software. It may contain grammatical, syntax o r spelling errors. Electronically signed by: Bala Ennis M.D. 01/29/2025 1:26 PM
[2025-01-29] MEDS ORDERED: PHARMACIST DISCHARGE MED REC CONSULT PRN (15:47)
--- NOTE | 2025-01-29 16:55 | Neurology Consultation ---
Date of Consultation January 29, 2025 Assessment & Plan (1) Acute ischemic left MCA stroke: With right sided dysmetria on exam. Etiology can be atheroembolic from left ICA plaque. Plan Recommend aspirin 81 mg in addition to Plavix 75 mg and atorvastatin 80 mg for 21 days, this should be followed by aspirin 81 mg and atorvastatin according to LDL. Echocardiogram was reviewed. Recommend a Zio patch upon discharge PT OT. Risk factor modifications. Follow-up with neurology in 6 to 8 weeks as an outpatient Telehealth Consultation Telehealth Information Telehealth Information: I performed this visit using a real-time telehealth connection between my location and the patients location ([facility]). After connecting through interactive tele-video, patient was identified by name and date of and/or wristband check.Patient (or authorized healthcare patient access representative) was informed that this was a telemedicine visit and it was being conducted confidentially over secure lines. My office door was closed and no one else was present in the room with me.Patient (or authorized healthcare patient access representative) provided consent to proceed with the visit, expressed an understanding of privacy and security of the telemedicine visit, and gave permission to have a hospital patient access representative in the room in order to assist with the visit and to conduct portions of the visit, as needed. I informed the patient (or authorized healthcare patient access representative) that I reviewed their record and presented the opportunity for them to ask any questions regarding the visit today. The patient agreed to participate. History of Present Illness Reason for Consultation: Acute ischemic stroke Requesting Physician: Saeid Moore MD Attending Physician: Saeid Moore MD History of Present Illness Mr. Chino Apodaca is a 79-year-old male patient with PMH of type II DM well- controlled, the patient is very active and goes to the gym every day. Yesterday after coming from the gym he noticed that he needed to really think about walking instead of it being an automatic action when he sat at lunch to eat he noticed clumsiness with his right hand. He denies any visual changes associated with it. When he went to bed he had to get up several times to go to the bathroom. He denies any blurry vision any slurred speech any confusion any previous history of similar events. Denies having any strenuous exercise that involves the neck. He did fall and has a rib fracture Allergies Allergy/AdvReac Type Severity Reaction Status Date / Time No Known Allergies Allergy Unverified 06/03/11 12:58 Home Medications Medication Instructions Recorded Confirmed Type glipizide 2.5 mg tablet, extended 2.5 mg PO DAILY 01/29/25 01/29/25 History release 24 hr latanoprost 0.005 % eye drops 1 drp ophthalmic (eye) HS 01/29/25 01/29/25 History metformin 1,000 mg tablet 1,000 mg PO BID 01/29/25 01/29/25 History Patient History Medical History (Updated 01/29/25 @ 16:56 by Suzanne Olivas MD) Diabetes mellitus, type II Glaucoma Surgical History No pertinent past surgical history Family History (Updated 01/29/25 @ 13:51 by Maria Antonia Peralta PA-C) Other Heart disease Denies family history of Stroke Social History Smoking Status: Former smoker Tobacco Type: Cigarettes Preferred Language: Turkmen Feels Safe at Home: Yes Physical Exam General Constitutional: Appearance normally developed Head and face: normocephalic and atraumatic Eyes: no ptosis, no anisocoria, and no dysconjugate gaze Respiratory: normal effort Cardiovascular: regular rhythm and regular rate Abdomen: non distended Skin: no rashes, lesions, or ulcers noted Psychiatric: normal judgement and insight, normal mood, and normal affect NEUROLOGIC EXAMINATION: Mental Status:alert, oriented to time, place, person, normal recent memory, normal remote memory, normal attention span, normal concentration, normal language and normal fund of knowledge Cranial Nerves: CN 2 - no visual defect on confrontation and pupils round, equal, reactive to light CN 3, 4, 6 - extra-ocular movements intact and no nystagmus CN 5 - facial sensation intact CN 7 - no facial asymmetry CN 8 - intact hearing CN 9, 10 - palate symmetric, normal gag CN 11 - good shoulder shrug CN 12 - tongue midline MOTOR: Strength was at least antigravity throughout, Pronator drift was absent and There were no abnormal movements SENSATION: intact and symmetric to pinprick, light touch, vibration and joint position GAIT: stable, no ataxia and can perform tandem walking COORDINATION: some ataxia with finger to nose testing and heel to perea testing REFLEXES: cannot assess over telemedicine NIH Stroke Scale: 1a. Level of Consciousness: alert = 0 1b. LOC Questions: (month, age): both correct = 0 1c. LOC Commands (open and close eyes, make fist and let go using non-paretic hand): obeys both correctly = 0 2. Best Gaze (eyes open and patient follows examiner's finger or face): normal = 0 3. Visual (visual threat or finger counting in each quadrant): no loss = 0 4. Facial Palsy (show teeth, raise eye brows and squeeze eyes shut, or grimace symmetry in a comatose patient): normal = 0 5a. Motor Arm (extend arm (palms down) to 90 degrees and score drift/movement (10 seconds) - Left: no drift = 0 5b. Motor Arm: (extend arm (palms down) to 90 degrees and score drift/movement (10 seconds) - Right: no drift = 0 6a. Motor Leg (elevate leg 30 degrees and score drift/ movement (5 seconds) - Left: no drift = 0 6b. Motor Leg (elevate leg 30 degrees and score drift/ movement (5 seconds) - Right: no drift = 0 7. Limb Ataxia (finger to nose, heel down perea): present win two limbs = 2 8. Sensory (pin prick to face, arm, trunk and leg, compare side to side): normal = 0 9. Best Language: no aphasia = 0 10. Dysarthria (evaluate speech clarity by patient repeating listed words): normal articulation = 0 11. Extinction and Inattention: no neglect = 0 Total: 2 Results & Data Vital Signs (Past 12 Hours) Vital Signs Temp Pulse Pulse Resp BP BP Pulse Ox 01/29/25 15:07 51 L 19 199/90 H 99 01/29/25 12:14 55 L 17 189/95 H 99 01/29/25 10:48 18 180/92 H 99 01/29/25 09:21 164/82 H 01/29/25 09:13 55 L 18 192/95 H 99 01/29/25 09:07 56 L 01/29/25 08:39 01/29/25 08:39 36.6 C 58 L 18 184/88 H 100 O2 Del Method 01/29/25 15:07 Room Air 01/29/25 12:14 Room Air 01/29/25 10:48 Room Air 01/29/25 09:21 01/29/25 09:13 Room Air 01/29/25 09:07 01/29/25 08:39 Room Air 01/29/25 08:39 Room Air Laboratory Results Laboratory Results - last 24 hr 01/29/25 01/29/25 01/29/25 09:05 09:13 15:54 WBC 7.99 RBC 4.47 L Hgb 14.2 POC Hgb 14.3 Hct 40.6 L POC Hct 42 MCV 90.8 MCH 31.8 MCHC 35.0 RDW Std Deviation 42.1 RDW Coeff of Amelia 12.7 Plt Count 208 MPV 9.4 Immature Gran % (Auto) 0.4 Neut % (Auto) 79.1 Lymph % (Auto) 12.1 [place] % (Auto) 6.0 Eos % (Auto) 1.6 Baso % (Auto) 0.8 Neut # (Auto) 6.32 Lymph # (Auto) 0.97 L [place] # (Auto) 0.48 Eos # (Auto) 0.13 Baso # (Auto) 0.06 Immature Gran # (Auto) 0.03 PT 10.4 INR 1.0 APTT 25 PTT Ratio 0.9 POC Sodium 140 Sodium 138 POC Potassium 3.8 Potassium 3.8 POC Chloride 103 Chloride 104 Carbon Dioxide 27 POC Total CO2 24 Anion Gap 7 POC Anion Gap 17.0 POC BUN 25 H BUN 26 H Creatinine 1.22 POC Creatinine 1.2 Est Cr Clr Drug Dosing 53.8 eGFR 61.06 BUN/Creatinine Ratio 21.3 H Glucose 128 H POC Glucose 98 POC Glucose (other) 132 H Calcium 9.7 POC Ioniz Calcium Isabel 1.25 Magnesium 1.8 Total Bilirubin 0.7 AST 14 ALT 3 L Alkaline Phosphatase 61 Troponin I High Sens 7.1 Total Protein 8.0 Albumin 4.6 Globulin 3.4 Albumin/Globulin Ratio 1.4 Urine Color Urine Appearance Urine pH Ur Specific Walker Urine Protein Urine Glucose (UA) Urine Ketones Urine Blood Urine Nitrite Urine Bilirubin Urine Urobilinogen Ur Leukocyte Esterase Urine WBC (Auto) Urine RBC (Auto) U Hyaline Cast (Auto) U Epithel Cells (Auto) Urine Bacteria (Auto) Urine Comment 01/29/25 Unknown WBC RBC Hgb POC Hgb Hct POC Hct MCV MCH MCHC RDW Std Deviation RDW Coeff of Amelia Plt Count MPV Immature Gran % (Auto) Neut % (Auto) Lymph % (Auto) [place] % (Auto) Eos % (Auto) Baso % (Auto) Neut # (Auto) Lymph # (Auto) [place] # (Auto) Eos # (Auto) Baso # (Auto) Immature Gran # (Auto) PT INR APTT PTT Ratio POC Sodium Sodium POC Potassium Potassium POC Chloride Chloride Carbon Dioxide POC Total CO2 Anion Gap POC Anion Gap POC BUN BUN Creatinine POC Creatinine Est Cr Clr Drug Dosing eGFR BUN/Creatinine Ratio Glucose POC Glucose POC Glucose (other) Calcium POC Ioniz Calcium Isabel Magnesium Total Bilirubin AST ALT Alkaline Phosphatase Troponin I High Sens Total Protein Albumin Globulin Albumin/Globulin Ratio Urine Color Yellow Urine Appearance Clear Urine pH 5.0 Ur Specific Walker > 1.045 H Urine Protein Negative Urine Glucose (UA) Negative Urine Ketones Trace H Urine Blood Negative Urine Nitrite Negative Urine Bilirubin Negative Urine Urobilinogen Negative Ur Leukocyte Esterase 1+ H Urine WBC (Auto) 11-20 H Urine RBC (Auto) 0-2 U Hyaline Cast (Auto) 0-2 U Epithel Cells (Auto) 0-2 Urine Bacteria (Auto) None Seen Urine Comment Diagnostic Findings MRI of the brain showed a small infarct within the left frontal lobe. CTA shows bilateral carotid bulbs atherosclerotic disease without high-grade stenosis CTA head shows no large vessel occlusion intracranially Sinus bradycardia Left ventricular ejection fraction is 55-60%, grade 1 diastolic dysfunction the interatrial septum is intact with no evidence of atrial septal defect, moderate concentric left ventricular hypertrophy, the atrium is normal in size. Medications Administered Home Medications Medication Instructions Recorded Confirmed Last Taken glipizide 2.5 mg tablet, extended 2.5 mg PO DAILY 01/29/25 01/29/25 Unknown release 24 hr latanoprost 0.005 % eye drops 1 drp ophthalmic (eye) HS 01/29/25 01/29/25 Unknown metformin 1,000 mg tablet 1,000 mg PO BID 01/29/25 01/29/25 Unknown
[2025-01-29] MEDS: INSULIN ASPART PER UNIT CHARGE SC SCH (17:15)
[2025-01-29] MEDS: HEPARIN SOD 5,000 UNIT/0.5 ML VIAL SQ SCH (17:25)
--- NOTE | 2025-01-29 18:13 | Electrocardiogram Report ---
Test Reason : Blood Pressure : */* mmHG Vent. Rate : 54 BPM Atrial Rate : 54 BPM P-R Int : 198 ms QRS Dur : 92 ms QT Int : 422 ms P-R-T Axes : 58 -32 72 degrees QTcB Int : 400 ms Sinus bradycardia Left axis deviation Nonspecific T wave abnormality Abnormal ECG No previous ECGs available Confirmed by Chicho Reid ([id number]) on 01/29/2025 6:13:04 PM Referred By: REFERRED SELF Confirmed By: Chicho Reid
[2025-01-29] MEDS: REMOVE LIDODERM PATCH SCH (20:15)
[2025-01-29] MEDS: LATANOPROST 0.005% OP SOLN 2.5 ML BTL OP SCH (20:15)
[2025-01-30 06:17] LABS: Hematocrit (blood only) 36.7 % (42.0-52.0); Hemoglobin 13.2 g/dl (14.0-18.0); Mean Corpuscular Hemoglobin 32.4 pg (25.0-34.0); Mean Corpuscular Volume 90.2 fL (80.0-100.0); Platelet Count 188 K/uL (130-400); RDW Standard Deviation 40.9 fL (36.4-46.3); Red Blood Count 4.07 M/uL (4.70-6.10); White Blood Count 4.83 K/ul (4.8-10.8)
[2025-01-30 06:39] LABS: Anion Gap 8.0 (3-11); Blood Urea Nitrogen 20.0 mg/dl (6-23); Calcium 9.4 mg/dl (8.6-10.3); Carbon Dioxide 25.0 mmol/L (21-32); Chloride 105.0 mmol/L (98-107); Cholesterol 193.0 mg/dl (0-200); Creatinine Clr Calc Pharmacy 51.3 ml/min; Glucose 125.0 mg/dl (70-99(Fasting)); HDL Cholesterol 72.0 mg/dl; Potassium 3.8 mmol/L (3.5-5.1); Sodium 138.0 mmol/L (136-145); Triglycerides 78.0 mg/dl (0-150)
[2025-01-30] MEDS: ASPIRIN 81 MG ECTAB PO SCH (07:58)
[2025-01-30] MEDS: ATORVASTATIN 40 MG TAB PO SCH (07:58)
[2025-01-30] MEDS: CLOPIDOGREL BISULFATE 75 MG TAB PO SCH (08:00)
[2025-01-30 08:09] VITALS: RESP 20
[2025-01-30 08:11] LABS: Hemoglobin A1C 6.4 % (4.5-5.6)
[2025-01-30] MEDS ORDERED: ATORVASTATIN 40 MG TAB PO SCH (09:00)
[2025-01-30] MEDS: LIDOCAINE 5% 1 PATCH TD SCH (09:19)
[2025-01-30] MEDS: PNEUMOCOCCAL VACCINE (PCV20) 20-VAL CONJ-DIP CRM/PF 0.5 ML SYR IM ONE (11:04)
[2025-01-30] MEDS ORDERED: STROKE PATIENT DISCHARGE STA (11:28)
--- NOTE | 2025-01-30 11:34 | Discharge Summary ---
Date of Service January 30, 2025 Admission HPI Per Admitting Provider This is a 79-year-old male with PMH of type 2 diabetes who presents with generalized weakness and unsteady gait since yesterday. Worked out at [employer] in the afternoon and then felt like he had to focus carefully on walking to his car to avoid falling, as if his feet were heavy. Drove home and rested the remainder of the evening without issue. When eating dinner around 9 PM, had difficulty grasping his silverware in his right dominant hand and was dropping things, per at bedside. During the night, got up multiple times to use the bathroom and during one of his returns to his bed, felt weakness and fell forward, hitting his ribs on his bedside table. Denies any head trauma or loss of consciousness. Got back in bed and slept the rest the night. Around 7 this morning, he and decided he should present to ED for further evaluation. Denies any history of stroke. No facial droop or difficulty speaking or swallowing. Still with some weakness of his right cardiology clinical consultant. Denies any tobacco use over the past 10 years. Drinks alcohol 5 nights a week, medical marijuana use. No fever, chills, lightheadedness, chest pain, shortness of breath, nausea, vomiting, abdominal pain, dysuria, diarrhea constipation. Admission Exam Per Admitting Provider General Appearance: WD/WN, vitals as above, NAD, sitting up in bed, pleasant, conversing easily Head: normocephalic, atraumatic Eyes: normal inspection, PERRL, conjunctivae normal, anicteric sclerae ENT: external ear and nose normal, oropharynx normal Neck: normal visual inspection Respiratory: normal respiratory effort, lungs clear to auscultation, no wheeze, rales, rhonchi. No accessory muscle use Cardiovascular: regular rate, rhythm, normal peripheral pulses, no BLE edema Abdomen/GI: normal bowel sounds, soft, nontender, no hepatosplenomegaly Extremities/Musculoskeletal: no cyanosis or clubbing, extremities motor strength R cardiology clinical consultant strength 4/5, L cardiology clinical consultant strength 5/5, RLE 4/5, LLE 5/5 Neurologic: PERRL, EOMI, accommodation nl, no face palsy, no dysarthria, CN's II-XI intact bilaterally and moves all extremities Psychiatric: A+Ox3, euthymic affect Skin: no rashes, normal color, warm/dry Principal Diagnosis Acute ischemic left MCA stroke Acute UTI Right 7th rib fracture, traumatic Discharge Exam General Appearance: WD/WN, vitals as above, NAD, sitting up in bed, pleasant, conversing easily Head: normocephalic, atraumatic Eyes: normal inspection, PERRL, conjunctivae normal, anicteric sclerae ENT: external ear and nose normal, oropharynx normal Neck: normal visual inspection Respiratory: normal respiratory effort, lungs clear to auscultation, no wheeze, rales, rhonchi. No accessory muscle use Cardiovascular: regular rate, rhythm, normal peripheral pulses, no BLE edema Abdomen/GI: normal bowel sounds, soft, nontender, no hepatosplenomegaly Extremities/Musculoskeletal: no cyanosis or clubbing, extremities motor strength all extremities strength 5/5 Neurologic: PERRL, EOMI, accommodation nl, no face palsy, no dysarthria, CN's II-XI intact bilaterally and moves all extremities Psychiatric: A+Ox3, euthymic affect Skin: no rashes, normal color, warm/dry Discharge Data Allergies Allergy/AdvReac Type Severity Reaction Status Date / Time No Known Allergies Allergy Unverified 06/03/11 12:58 Consultations 01/29/25 10:46 ED Decision to Admit Stat 01/29/25 11:53 Consult Neurology Routine Ordered Studies 01/29/25 08:57 CT abd pelvis IV con only Stat CT angio head w con Stat CT angio neck with con Stat CT chest diagnostic w con Stat CT head/brain wo con Stat 01/29/25 11:45 MRI Brain [MR brain wo con] Urgent Hospital Course (1) Acute ischemic left MCA stroke: Plan Patient was seen and examined at bedside as a follow-up of acute ischemic left MCA stroke (likely atheroembolic from left ICA plaque) and possible UTI. Patient complained of urinary frequency prior to arrival, urine culture is pending. I will start patient on Rocephin and discharge on antibiotic to complete 5-day course. Patient has been made aware to follow-up on final results of urine culture during his PCP visit. He voiced understanding. Pam tavares was also made aware on plan of care of his acute stroke with DAPT and statin. Patient will benefit from Zio patch monitoring upon discharge which patient was made aware of. He denies any chest pain or shortness of breath or any new neurological signs or symptoms. He reports improvement in his right- sided strength. Patient is made aware to follow-up with neurology in 6 to 8 weeks time of discharge. Patient is being discharged with following instructions at the point of discharge: Follow-up with your primary care physician within a week time and likely you will need labs CBC/CMP/magnesium/phosphorus. Continue with physical therapy as an outpatient upon discharge. Follow-up with neurology in 6 to 8 weeks time upon discharge. You will benefit from outpatient Zio patch monitoring, coordinate with your PCP office to set up the test. You will be discharged on antibiotic to complete the course for UTI, take them as prescribed. Continue with aspirin and atorvastatin lifelong, continue with Plavix for 19 more days upon discharge. You can utilize [id number] 4% lidocaine patch for your right-sided rib pain, continue to utilize incentive spirometer as instructed for at least 2 weeks upon discharge. Take your medications as prescribed. Please make sure that you are able to get your medications today by calling your pharmacy before you leave the hospital so that your treatment continuity is not broken. Home Health Attestation I certify that this patient is under my care and that I, or a physicians assistant professor of forestry working with me, had a face to-face encounter that meets the home health [id number] encounter requirements with this patient. The encounter with the patient was in whole, or in part, for the following med ical condition, which is the primary reason for home health care (list medical condition): I certify that, based on my findings, the following services are medically necessary home health services: My clinical findings support the need for the above services because: Further, I certify that my clinical findings support that this patient is homebound (i.e. absences from home require considerable and taxing effort and are for medical reasons or temple services or infrequently or of short duration when for other reasons) because: Certification for Home Health Services: Based on the above findings, I certify that this patient is confined to the home and needs intermittent mcfp care, physical therapy and/or speech therapy or continues to need occupational therapy. The patient is under my care, and I have initiated the establishment of the plan of care. This patient will be followed by a physician who will periodically review the plan of care. Total Time Total Time Spent Total Time Spent (In Minutes): 50 Discharge Plan Discharge Items Patient Disposition: Home - Self-Care Reason For Visit: STROKE EVAL Discharge Diagnosis: Acute ischemic left MCA stroke Acute UTI Right 7th rib fracture, traumatic Condition on Discharge: Fair Activity: Resume your previous activity Non-emergency contact: Primary Care Provider Call non-emergency contact if: you have any medication questions and your symptoms worsen Follow-up/Referrals: Mingo Damon DO [Primary Care Provider] - Diet: Carb Consistent or DM2 Ambulatory Orders: Physical Medicine Amb Referral (Routine) Timeframe: 1 Day Location: None Selected Ordered By: Edison Pruitt Attending Provider Instructions: Follow-up with your primary care physician within a week time and likely you will need labs CBC/CMP/magnesium/phosphorus. Continue with physical therapy as an outpatient upon discharge. Follow-up with neurology in 6 to 8 weeks time upon discharge. You will benefit from outpatient Zio patch monitoring, coordinate with your PCP office to set up the test. You will be discharged on antibiotic to complete the course for UTI, take them as prescribed. Continue with aspirin and atorvastatin lifelong, continue with Plavix for 19 more days upon discharge. You can utilize [id number] 4% lidocaine patch for your right-sided rib pain, continue to utilize incentive spirometer as instructed for at least 2 weeks upon discharge. Take your medications as prescribed. Please make sure that you are able to get your medications today by calling your pharmacy before you leave the hospital so that your treatment continuity is not broken. Pending Studies at Discharge: Yes Stand-Alone Forms: My [facility], Smoking Cessation, Medications to Prevent Stroke Medications and DC Order Prescriptions: New atorvastatin 40 mg Tablet 80 mg PO QAM Qty: 60 0RF clopidogrel 75 mg Tablet 75 mg PO QAM 19 Days Qty: 19 0RF aspirin 81 mg Tablet,Delayed Release (Dr/Ec) 81 mg PO QAM Qty: 30 0RF cefdinir 300 mg capsule 300 mg PO BID 4 Days Qty: 8 0RF Continued latanoprost 0.005 % drops 1 drp ophthalmic (eye) HS glipizide 2.5 mg tablet extended release 24hr 2.5 mg PO DAILY metformin 1,000 mg tablet 1,000 mg PO BID Discharge Orders: Discharge Order (Routine); Ordered 01/30/25 Ordered By: Edison Penaloza/Other Patient Handouts: Managing Type 2 Diabetes Admission Data Admit Date/Time: 01/29/25 11:48 Attending Provider: Edison Marsh Admit Provider: Saeid Moore Primary Care Provider: Mingo Damon Other Providers: Saeid Moore; Suzanne Hester
[2025-01-30] MEDS: cefTRIAXone SODIUM 2,000 MG/50 ML BAG IV SCH (11:39)
[2025-01-30 11:42] VITALS: TEMP 98.4
[2025-01-30 11:43] VITALS: BP 175/100; PULSE 53; O2SAT 98
--- NOTE | 2025-01-30 11:47 | Pharmacy Report ---
- Date of Service January 30, 2025 - Pharmacy CVA/TIA Medication Review Medications to Prevent Stroke handout has been added to the patients discharge packet. Antiplatelet(s) * aspirin 81 mg daily * plavix 75 mg daily Cholesterol * High intensity statin: atorvastatin 80 mg daily DVT Prophylaxis * Heparin SQ Therapeutic Anticoagulation * Zio patch upon discharge Type 2 Diabetes * Patient has T2DM, a diabetes medication with proven CVD benefit will be deferred to their outpatient provider due to familiarity with risks/benefits of such therapies. "Medications to prevent stroke" handout has already been added to the patient's discharge packet, which instructs the patient to follow up with their outpatient provider to evaluate which diabetes medication with proven CVD benefit is best for them
[2025-01-30] MEDS ORDERED: REMOVE LIDODERM PATCH SCH (21:00)
--- NOTE | 2025-02-02 13:46 | Pharmacy Report ---
Pharmacist Stroke Counseling - Date of Service February 02, 2025 - Scope: Pharmacy has been consulted to provide medication discharge counseling for this patient admitted with ischemic stroke as per the Pharmacist Discharge Counseling for Stroke Patients Protocol. - Medications on Discharge: Home Medications Medication Instructions Recorded Confirmed glipizide 2.5 mg tablet, extended 2.5 mg PO DAILY 01/29/25 01/29/25 release 24 hr latanoprost 0.005 % eye drops 1 drp ophthalmic (eye) HS 01/29/25 01/29/25 metformin 1,000 mg tablet 1,000 mg PO BID 01/29/25 01/29/25 New Rx's Medication Instructions Recorded aspirin 81 mg tablet,delayed 81 mg PO QAM #30 tabs 01/30/25 release atorvastatin 40 mg tablet 80 mg (2 x 40 mg) PO QAM #60 tabs 01/30/25 cefdinir 300 mg capsule 300 mg PO BID 4 days #8 caps 01/30/25 clopidogrel 75 mg tablet 75 mg PO QAM 19 days #19 tabs 01/30/25 - Action: The above medications, specifically ones for stroke treatment/prophylaxis, have been reviewed in detail with the patient. This includes indication, common adverse reactions, drug interactions, and medication administration. Medication counseling has been employed using the teach-back method to ensure understanding. - Outcome: The patient has demonstrated understanding of the medications. Additional comments: Patient prefers to not take statin to avoid side effects, as he prefers to use Cholestyramine instead, and his lipids are well controlled. Thank you for allowing pharmacy to be involved in the care of this patient. Nelly dumont call [phone] with any additional questions
== END 2025-01-30 13:08 | disposition home or self-care (01) ==
LOC: 2S 08:38 → ED 08:38 → SUATTDRO 11:48 → 2S 15:05